=== PATIENT | male | born 1980 | race Caucasian/White ===

== ENCOUNTER 2020-12-30 12:35 | Emergency (ER) | payer OTHER ==
[2020-12-30] MEDS ORDERED: CASIRIVIMAB (REGN10933) 1,200 MG, IMDEVIMAB (REGN10987) 1,200 MG in SODIUM CHLORIDE 250 ML IVPB ONE (12:37)
[2020-12-30] MEDS ORDERED: [UNRECOGNIZED DRUG - OTHER] IVPB ONE (12:59)
[2020-12-30 13:11] LABS: HEMATOCRIT 41.7 % (35.4-49); HEMOGLOBIN 14.4 GM/dL (11.7-16.9); MCH 32.1 pg (25.7-33.7); MCHC 34.6 g/dl (32.0-35.9); MEAN CELL VOLUME 92.8 fl (80-96); MEAN PLT VOLUME 9.1 fl (7.5-11.1); PLATELET COUNT 139 10^3/uL (134-434); RBC 4.49 M/mm3 (4.00-5.60); RDW 13.5 % (11.9-15.9); WHITE BLOOD COUNT 5.2 K/mm3 (4.0-10.0)
[2020-12-30] MEDS ORDERED: CASIRIVIMAB (REGN10933) 600 MG, IMDEVIMAB (REGN10987) 600 MG in SODIUM CHLORIDE 100 ML IVPB ONE (13:16)
[2020-12-30 13:23] VITALS: BMI 23.1
[2020-12-30 13:28] LABS: CALCIUM 8.5 mg/dL (8.5-10.1)
[2020-12-30 13:29] LABS: BLOOD UREA NITROGEN 13.1 mg/dL (7-18)
[2020-12-30 13:32] LABS: CREATININE 0.9 mg/dL (0.55-1.3)
[2020-12-30 14:55] VITALS: BP 100/68; PULSE 62; TEMP 98.5
== END 2020-12-30 14:30 | disposition home or self-care (01) ==
LOC: JER 12:35
DX: U07.1 COVID-19 (principal)
CPT/HCPCS: 36415; 80048; 85027; 99283-25; M0243; Q0243